=== PATIENT | male | born 1940 | race Caucasian/White ===

== ENCOUNTER 2021-07-18 11:49 | Inpatient (IN) | payer OTHER ==
[~2021-07-18] VITALS: Ht 170.2 cm; Wt 68.9 kg
[2021-07-22] MEDS ORDERED: TAMSULOSIN HCL0.4 MG (08:42)
[2021-07-22] MEDS ORDERED: DOXAZOSIN MESYLA2 MG (08:42)
[2021-07-22] MEDS ORDERED: OMEPRAZOLE20 MG (08:42)
[2021-07-22] MEDS ORDERED: BACLOFEN10 MG (08:42)
[2021-07-22] MEDS ORDERED: SIMVASTATIN40 MG (08:42)
[2021-07-22] MEDS ORDERED: ALENDRONATE SOD70 MG (08:43)
[2021-07-31] MEDS ORDERED: TAMS0.4C PO (08:07)
[2021-07-31] MEDS ORDERED: OXYC1TAB9 PO (08:08)
[2021-07-31] MEDS ORDERED: HYOSCYAMINE0.125 M1 SL (08:08)
[2021-07-31] MEDS ORDERED: LEVOFLOXACIN500 MG PO (08:09)
[2021-07-31] MEDS ORDERED: PROTONIX40 MG PO (08:09)
== END 2021-07-31 15:00 | disposition home or self-care (01) | DRG 330 ==
LOC: SURH 07-20 10:02
PROVIDERS: Surgery; ADMIT Internal Medicine Geriatric Medicine; ATTEND Internal Medicine Geriatric Medicine
PROC: 30233N1 Transfusion of Nonautologous Red Blood Cells into Peripheral Vein, Percutaneous Approach (ICD-10-PCS; 2021-07-21)
PROC: 07BB4ZZ Excision of Mesenteric Lymphatic, Percutaneous Endoscopic Approach (ICD-10-PCS; 2021-07-22)
PROC: 0DTF4ZZ Resection of Right Large Intestine, Percutaneous Endoscopic Approach (ICD-10-PCS; principal; 2021-07-22 09:30)
PROC: 02HV33Z Insertion of Infusion Device into Superior Vena Cava, Percutaneous Approach (ICD-10-PCS; 2021-07-24)
PROC: BW21YZZ Computerized Tomography (CT Scan) of Abdomen and Pelvis using Other Contrast (ICD-10-PCS; 2021-07-29)
DX: C18.0 Malignant neoplasm of cecum (principal); K56.600 Partial intestinal obstruction, unspecified as to cause; K91.89 Other postprocedural complications and disorders of digestive system; K56.7 Ileus, unspecified; R59.0 Localized enlarged lymph nodes; N41.8 Other inflammatory diseases of prostate; R33.8 Other retention of urine; R31.9 Hematuria, unspecified; D64.9 Anemia, unspecified; Z20.822 Contact with and (suspected) exposure to COVID-19; F43.21 Adjustment disorder with depressed mood; N40.0 Benign prostatic hyperplasia without lower urinary tract symptoms

== ENCOUNTER 2021-08-04 00:38 | Emergency (ER) | payer OTHER ==
[~2021-08-04] VITALS: Ht 188 cm; Wt 70.3 kg
[~2021-08-04 00:38] MED LIST: ALENDRONATE SOD70 MG; BACLOFEN10 MG; DOXAZOSIN MESYLA2 MG; HYOSCYAMINE0.125 M1 SL; LEVOFLOXACIN500 MG PO; OMEPRAZOLE20 MG; OXYC1TAB9 PO; PROTONIX40 MG PO; SIMVASTATIN40 MG; TAMS0.4C PO; TAMSULOSIN HCL0.4 MG
== END 2021-08-04 01:38 | disposition home or self-care (01) ==
LOC: ER 00:38
DX: T83.018A Breakdown (mechanical) of other urinary catheter, initial encounter (principal); C18.9 Malignant neoplasm of colon, unspecified

== ENCOUNTER 2021-08-06 15:33 | Emergency (ER) | payer OTHER ==
[~2021-08-06] VITALS: Ht 170.2 cm; Wt 68.0 kg
== END 2021-08-06 21:15 | disposition home or self-care (01) ==
LOC: ER 15:33
DX: T83.091A Other mechanical complication of indwelling urethral catheter, initial encounter (principal); N40.1 Benign prostatic hyperplasia with lower urinary tract symptoms; R33.8 Other retention of urine; I10 Essential (primary) hypertension; Z85.9 Personal history of malignant neoplasm, unspecified